=== PATIENT | male | born 1980 | race Caucasian/White ===

== ENCOUNTER 2020-03-08 00:37 | Emergency (ER) | payer OTHER, SELFPAY ==
[2020-03-08] VITALS (72 sets, daily range): BP systolic 92–139; BP diastolic 52–94; PULSE 73–119; RESP 11–30; TEMP 35.4; O2SAT 92–100; BMI 28.8
--- NOTE | 2020-03-08 00:46 | DI.CT.S_ITS ---
PROCEDURE: CT CERVICAL SPINE WO CON INDICATIONS: Fall while intoxicated TECHNIQUE: Noncontrast 3 mm thick sections acquired from the skull base to the T4 level. Sagittal and coronal reformats were then constructed. For radiation dose reduction, the following was used: automated exposure control, adjustment of mA and/or kV according to patient size. COMPARISON: None. FINDINGS: Image quality: Excellent. Bones: No fractures or dislocations. Visualized superior ribs are intact. Incidental note is made of the presence of a C5 vertebral body hemangioma. Soft tissues: Prevertebral soft tissues are normal in thickness. No paravertebral hematomas. No apical pneumothoraces. IMPRESSION: No evidence acute cervical fracture or dislocation. Comment: Final report is concordant with preliminary interpretation provided by [facility]. Dictated by: Cassius Scott M.D. on 03/08/2020 at 7:14 Approved by: Cassius Scott M.D. on 03/08/2020 at 7:16
--- NOTE | 2020-03-08 00:46 | DI.CT.S_ITS ---
PROCEDURE: CT HEAD/BRAIN WO CON INDICATIONS: Fall while intoxicated TECHNIQUE: Noncontrast 4.5 mm thick angled axial sections acquired from the foramen magnum to the vertex, with coronal and sagittal reformats. For radiation dose reduction, the following was used: automated exposure control, adjustment of mA and/or kV according to patient size. COMPARISON: None. FINDINGS: Image quality: Excellent. CSF spaces: Basal cisterns are patent. No extra-axial fluid collections. Ventricles are normal in size and shape. Brain: No midline shift. No intracranial masses or hemorrhage. Hernandez-white matter interface is normal. Skull and face: Calvarium and visualized facial bones are intact, without suspicious lesions. Sinuses: Visualized sinuses and mastoids are clear. IMPRESSION: Negative for acute stroke, hemorrhage, or mass. No evidence of significant intracranial sequelae of acute trauma. Comment: Final report is concordant with preliminary interpretation provided by [facility]. Dictated by: Cassius Scott M.D. on 03/08/2020 at 7:11 Approved by: Cassius Scott M.D. on 03/08/2020 at 7:11
--- NOTE | 2020-03-08 00:50 | ED.GENADULT ---
HPI - General Adult General Chief complaint: Unresponsive Stated complaint: ETOH Time Seen by Provider: 03/08/20 00:44 Source: EMS Mode of arrival: EMS Limitations: altered mental status History of Present Illness HPI narrative: Patient is a 40-year-old male who arrived by EMS on a backboard and in a cervical collar for evaluation of potential injuries that he sustained secondary to an unwitnessed fall. Numbness reported by EMS that they were called after the patient was found in ?unresponsive? and ?passed out? in a chair. EMS was called by the patient's brothers who were with him at a campsite. The story goes that the patient's brothers left to go to another location and when they return to their campsite the patient was sitting in a chair. They were told [facility] that the patient apparently had fallen and hit his head on a metal portion of the camper. The other campers for the ones to with the patient in the chair. Unsure as to how long he was in the chair. EMS reports that he was maintaining his own airway and secretions however was minimally responsive. Modified trauma called secondary to mechanism. Related Data Allergies Allergy/AdvReac Type Severity Reaction Status Date / Time Penicillins Allergy Verified 03/08/20 02:06 Review of Systems Review of Systems ROS Unobtainable: Unobtainable due to mental status/LOC Patient History Medical History (Updated 03/08/20 @ 06:11 by Hermann Faustin DO) Medical history unknown (Acute) Social History Smoking Status: Never smoker Exam Initial Vital Signs Initial Vital Signs: Vital Signs Pulse Rate 73 03/08/20 00:46 Respiratory Rate 13 03/08/20 00:46 Pulse Oximetry 94 03/08/20 00:46 Const General: comfortable Limitations: altered mental status HENMT Head: normal to inspection and normocephalic Nose: external nose normal Face and sinus: normal facial exam Mouth: oral mucosae normal Teeth and gingiva: dentition normal Eyes Pupils: PERRL and pupil size bilaterally 6 Neck Other: In a cervical collar Chest Chest: No crepitus Resp Effort & Inspection: normal respiratory effort Auscultation: clear to auscultation bilaterally Cardio Rate: regular rate Rhythm: regular rhythm GI Inspection: non-distended Palpation: soft Rectal Exam: normal sphincter tone Back/Spine/Pelvis Other: No gross deformities with palpation of thoracic lumbar spine Skin Lesions: no lesions Rashes: no rashes Neuro Other: Patient localizes to discomfort. Nonverbal. Does move bilateral upper extremities spontaneously. Extrem General: normal to inspection and capillary refill normal Psych Appearance: well kempt Scores GCS [place] coma scale eye opening: None [place] coma scale verbal response: None Mentcle coma scale motor response: Localising Mentcle coma scale total score: 7 Course Orders Ordered: ED Orders 03/08/20 00:46 CT cervical spine wo con Stat CT head/brain wo con Stat 03/08/20 00:55 Basic Metabolic Panel Stat Complete Blood Count AUTO DIFF Stat Creatine Kinase Stat Ethanol (ETOH) Stat Sodium Chloride (Normal Saline 0.9%) 1,000 mls @ 125 mls/hr IV CONT SATURNINO Last Infusion: 03/08/20 02:04 Dose: 0 mls/hr Documented by: Infusion: 03/08/20 01:18 Dose: 999 mls/hr Documented by: Admin: 03/08/20 01:18 Dose: 125 mls/hr Documented by: KENNY Discontinued Medications Lorazepam (Ativan) 1 mg IV NOW ONE Stop: 03/08/20 02:55 Last Admin: 03/08/20 03:55 Dose: Not Given Documented by: KENNY Lorazepam (Ativan) 1 mg IV NOW ONE Stop: 03/08/20 05:21 Last Admin: 03/08/20 05:24 Dose: Not Given Documented by: KENNY Vital Signs Vital signs: Vital Signs - 8 hr 03/08/20 00:46 03/08/20 00:50 03/08/20 00:55 Temperature Pulse Rate 73 80 75 Respiratory Rate 13 14 13 Blood Pressure Pulse Oximetry 94 95 93 03/08/20 01:03 03/08/20 01:04 03/08/20 01:05 Temperature 95.8 F L Pulse Rate 76 77 102 H Respiratory Rate 14 28 H Blood Pressure 132/65 Pulse Oximetry 93 03/08/20 01:06 03/08/20 01:07 03/08/20 01:10 Temperature Pulse Rate 99 H 87 77 Respiratory Rate 17 27 H 21 Blood Pressure 134/89 132/85 Pulse Oximetry 97 96 95 03/08/20 01:15 03/08/20 01:20 07/05/20 01:25 Temperature Pulse Rate 76 77 79 Respiratory Rate 12 13 13 Blood Pressure Pulse Oximetry 97 94 95 03/08/20 01:30 03/08/20 01:33 03/08/20 01:35 Temperature Pulse Rate 79 76 76 Respiratory Rate 13 12 12 Blood Pressure 108/60 106/60 114/61 Pulse Oximetry 92 99 99 03/08/20 01:40 03/08/20 01:45 03/08/20 01:50 Temperature Pulse Rate 80 79 80 Respiratory Rate 12 12 12 Blood Pressure 101/61 104/59 L 111/61 Pulse Oximetry 99 99 99 03/08/20 01:55 03/08/20 02:00 03/08/20 02:03 Temperature Pulse Rate 81 81 85 Respiratory Rate 13 12 12 Blood Pressure 95/56 L 116/68 Pulse Oximetry 100 100 100 03/08/20 02:05 03/08/20 02:10 03/08/20 02:15 Temperature Pulse Rate 80 80 80 Respiratory Rate 12 13 13 Blood Pressure 120/64 115/58 L 92/56 L Pulse Oximetry 99 99 99 03/08/20 02:20 03/08/20 02:25 03/08/20 02:30 Temperature Pulse Rate 80 87 85 Respiratory Rate 12 13 12 Blood Pressure 105/56 L 114/62 119/66 Pulse Oximetry 99 98 99 03/08/20 02:35 03/08/20 02:40 03/08/20 02:45 Temperature Pulse Rate 80 87 83 Respiratory Rate 12 13 13 Blood Pressure 117/62 118/69 115/67 Pulse Oximetry 99 98 98 03/08/20 02:50 03/08/20 02:55 03/08/20 03:00 Temperature Pulse Rate 90 83 97 H Respiratory Rate 14 11 L 18 Blood Pressure 124/74 126/74 117/74 Pulse Oximetry 99 97 98 03/08/20 03:05 03/08/20 03:10 03/08/20 03:15 Temperature Pulse Rate 90 85 87 Respiratory Rate 14 13 13 Blood Pressure 116/71 120/71 122/69 Pulse Oximetry 98 98 98 03/08/20 03:20 03/08/20 03:25 03/08/20 03:30 Temperature Pulse Rate 83 85 88 Respiratory Rate 13 13 13 Blood Pressure 118/65 107/57 L 107/57 L Pulse Oximetry 98 98 98 03/08/20 03:35 03/08/20 03:40 03/08/20 03:45 Temperature Pulse Rate 90 90 93 H Respiratory Rate 13 13 14 Blood Pressure 116/65 114/65 118/68 Pulse Oximetry 98 98 98 03/08/20 03:50 03/08/20 03:55 03/08/20 04:00 Temperature Pulse Rate 91 H 99 H 90 Respiratory Rate 13 14 13 Blood Pressure 109/62 106/59 L 111/60 Pulse Oximetry 99 99 99 03/08/20 04:05 03/08/20 04:10 03/08/20 04:15 Temperature Pulse Rate 91 H 91 H 91 H Respiratory Rate 13 13 14 Blood Pressure 110/59 L 111/63 104/56 L Pulse Oximetry 99 99 99 03/08/20 04:20 Temperature Pulse Rate 92 H Respiratory Rate 13 Blood Pressure 99/57 L Pulse Oximetry 99 Medical Decision Making Lab Data Lab results reviewed: Yes I reviewed the patient's lab results. Result diagrams: 03/08/20 00:55 03/08/20 00:55 Labs: Lab Results 03/08/20 03/08/20 03/08/20 Range/Units 00:55 00:55 00:55 WBC 6.3 (4.5-11.0) X10^3/uL RBC 5.35 (4.5-5.9) X10^6/uL Hgb 16.5 (13.5-17.5) g/dL Hct 47.3 (41-53) % MCV 88.4 (80-100) fL MCH 30.8 (26-34) PG MCHC 34.9 (30-36) % RDW 13.4 (11.6-14.8) % Plt Count 260 (150-400) X10^3/uL Neut % (Auto) 54.8 (50-75) % Lymph % (Auto) 38.0 (25-40) % [place] % (Auto) 5.1 (3-14) % Eos % (Auto) 1.3 L (2-4) % Baso % (Auto) 0.8 (0-2) % Neut # (Auto) 3400 (8486-1746) /uL Lymph # (Auto) 2400 (7075-6570) /uL [place] # (Auto) 300 (0-900) /uL Eos # (Auto) 100 (0-450) /uL Baso # (Auto) 0 (0-100) /uL Sodium 141 (137-145) mmol/L Potassium 3.8 (3.4-5.1) mmol/L Chloride 103 (98-107) mmol/L Carbon Dioxide 27 (22-32) mmol/L BUN 12 (9-20) mg/dL Creatinine 1.30 H (0.66-1.25) mg/dL Estimated GFR > 60.0 (>60) mL/min BUN/Creatinine Ratio 9.2 (6-22) Glucose 133 H (70-100) mg/dL Calcium 9.0 (8.4-10.2) mg/dL Total Creatine Kinase 186 H (55-170) U/L Ethyl Alcohol 274 H ( - 10) mg/dL Imaging Data CT scan - head: Radiologist's Impression: No CT evidence of acute intracranial pathology CT - cervical spine: Radiologist's Impression: No CT evidence of acute cervical spinal injury MDM Narrative Medical decision making narrative: Patient was observed in the emergency department until he woke up. Was alert and oriented. Tolerated oral intake. Moving all 4 extremities. No signs of trauma. No reports of pain. Will hold on further workup for now. Discharge patient home with family. Discharge Plan Departure Patient Disposition: Home Clinical Impression: Alcohol intoxication Qualifiers: Complication of substance-induced condition: with unspecified complication Qualified Code(s): F10.929 - Alcohol use, unspecified with intoxication, unspecified Instructions: DI for Alcohol Abuse Activity Restrictions/Additional Instructions: No driving for the next 24 hours or in the future if you partake in intoxicating substances. Contact your primary provider for follow-up.
[2020-03-08 01:04] LABS: Add Manual Diff / Slide Review NO; Basophils Absolute Auto 0 /uL (0-100); Basophils Percent Auto 0.8 % (0-2); Eosinophils Absolute Auto 100 /uL (0-450); Eosinophils Percent Auto 1.3 % (2-4); Hematocrit 47.3 % (41-53); Hemoglobin 16.5 g/dL (13.5-17.5); Lymphocytes Absolute Auto 2400 /uL (1100-4500); Mean Corpuscular HGB Conc 34.9 % (30-36); Mean Corpuscular Hemoglobin 30.8 PG (26-34); Mean Corpuscular Volume 88.4 fL (80-100); Monocytes Absolute Auto 300 /uL (0-900); Monocytes Percent Auto 5.1 % (3-14); Neutrophils Absolute Auto 3400 /uL (1500-7000); Neutrophils Percent Auto 54.8 % (50-75); Platelet Count 260 X10^3/uL (150-400); Red Blood Cell Count 5.35 X10^6/uL (4.5-5.9); Red Cell Distribution Width 13.4 % (11.6-14.8); White Blood Cell Count 6.3 X10^3/uL (4.5-11.0)
[2020-03-08 01:09] LABS: BUN Creatinine Ratio 9.2 (6-22); Blood Urea Nitrogen 12 mg/dL (9-20); Carbon Dioxide 27 mmol/L (22-32); Chloride 103 mmol/L (98-107); Estimated Glomerular Filt Rate > 60.0 mL/min (>60); Ethanol (ETOH) 274 mg/dL; Glucose 133 mg/dL (70-100); HEMOLYSIS < 15 (0-50); Potassium 3.8 mmol/L (3.4-5.1); Sodium 141 mmol/L (137-145)
[2020-03-08] MEDS: SODIUM CHLORIDE 0.9% 1,000 ML 125 ML IV (01:18)
--- NOTE | 2020-03-08 01:19 | PC.NURSE ---
Pt arrived to ED with [facility]. Was at a 07 of March green party tonight with brothers. Brothers report pt has been drinking although they do not know how much. 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 unknown if pt takes any home medications. Arrives unresponsive on spinal board in full immobilization. clothing removed and warm blankets placed over pt. RR 18, 96% RA. oral suction provided. protecting his own airway at this time. PERRL, responds to noxious stimuli, connected to cardiac monitoring, ETCO2 in place at 39-44. Rolled on L side, Adequate rectal tone per Dr Faustin, no anterior trauma noted. rectal temp 95.8F. Wendy Hugger applied and Cano placed without complication. draining clear yellow urine. Addition IV sites obtained and labs drawn and sent. Warmed fluids infusing. Pt taken to and from CT without complication. Brothers in department at bedside. Pt placed on 2L O2. NAD. 1:1 with patient. will continue to monitor.
--- NOTE | 2020-03-08 02:06 | PC.NURSE ---
Spoke with Cyndi, who is driving up from [place], [place]. 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 last tx was in January. Unk why pt had rhabdo. takes BP med daily that she could not recall. no other prescribed medications. temp recheck 97.3 temporally. Wendy Meredith still in place.
[2020-03-08 02:09] LABS: Creatine Kinase 186 U/L (55-170)
--- NOTE | 2020-03-08 03:54 | PC.NURSE ---
pt starting to awaken at this time. pt did big over arm stretch and stated he felt hot. Wendy Hugger stopped and removed. pt able to open eyes and answer yes and no questions appropriately. MD hurley
--- NOTE | 2020-03-08 05:15 | PC.NURSE ---
pt awake. alert to person. confused on where he is and states its 1991. capnogrpahy removed. HR 105.
--- NOTE | 2020-03-08 05:54 | PC.NURSE ---
Pt AAOx3, drinking water sitting up in bed. cath removed. at bedside.
== END 2020-03-08 06:25 | disposition home or self-care (01) ==
PROVIDERS: Emergency Provider Emergency Medicine
DX: F10.129 Alcohol abuse with intoxication, unspecified (principal); Y90.8 Blood alcohol level of 240 mg/100 ml or more; W19.XXXA Unspecified fall, initial encounter; S09.90XA Unspecified injury of head, initial encounter; S19.9XXA Unspecified injury of neck, initial encounter
CPT/HCPCS: 36415; 51701; 70450; 72125; 80048; 80320; 82550; 85025; 96360; 99285